=== PATIENT | female | born 1940 | race Two or more races ===

== ENCOUNTER 2020-12-13 08:00 | Emergency (ER) | payer OTHER ==
[~2020-12-13] VITALS: Ht 162.6 cm; Wt 83.9 kg
[2020-12-13 11:18] LABS: Basophils # (auto) 0 10 ^3/uL (0-0.2); Basophils % (auto) 0.3 % (0.0-2.0); Eosinophils # (auto) 0 10 ^3/uL (0-0.8); Hematocrit 39.7 % (36.0-46.0); Hemoglobin 13.2 g/dL (12.2-16.2); Lymphocytes # (auto) 0.5 10 ^3/uL (0.4-5.4); Lymphocytes % (auto) 5.7 % (10.0-50.0); Mean Corpuscular Hgb Conc. 33.3 g/dL (32.0-36.0); Mean Corpuscular Volume 87.2 fL (80.0-100.0); Monocytes # (auto) 0.3 10 ^3/uL (0-1.3); Monocytes % (auto) 4.2 % (0.0-12.0); Neutrophils # (auto) 7.3 10 ^3/uL (1.6-8.6); Neutrophils % (auto) 89.8 % (37.0-80.0); Red Blood Cells 4.55 10^6/uL (4.0-5.20); Red Cell Distribution Width 14.1 % (11.8-14.3); White Blood Cell 8.1 10^3/uL (4.4-10.8)
[2020-12-13 11:32] LABS: INR 1.03 (0.9-1.15); Partial Thromboplastin Time 25.1 sec (23.6-33.0)
[2020-12-13 11:34] LABS: Albumin 3.2 g/dL (3.4-5.0); BUN/Creatinine Ratio 20.9; Calcium 9.4 mg/dL (8.5-10.1); Potassium 3.6 mmol/L (3.5-5.1)
[2020-12-13 11:36] LABS: Bilirubin, Total 0.5 mg/dL (0.2-1.0); Total Protein 7.3 g/dL (6.4-8.2)
[2020-12-13 21:27] VITALS: BP 152/71
[2020-12-13] MEDS ORDERED: LISINOPRIL 10 MG TAB PO ONE (21:30)
[2020-12-13] MEDS ORDERED: HYDROcodone-ACET 5/325MG TAB PO ONE (21:30)
[2020-12-13] MEDS ORDERED: amLODIPine BESYLATE 5 MG TAB PO ONE (21:30)
== END 2020-12-14 00:55 | disposition short-term general hospital (02) ==
LOC: EDBD 08:00 → ER 08:00
DX: U07.1 COVID-19 (principal); S42.292A Other displaced fracture of upper end of left humerus, initial encounter for closed fracture; S42.252A Displaced fracture of greater tuberosity of left humerus, initial encounter for closed fracture; E11.65 Type 2 diabetes mellitus with hyperglycemia; E44.1 Mild protein-calorie malnutrition; R51.9 Headache, unspecified; I10 Essential (primary) hypertension; Z68.31 Body mass index [BMI] 31.0-31.9, adult; Z96.649 Presence of unspecified artificial hip joint; W18.09XA Striking against other object with subsequent fall, initial encounter; Y93.89 Activity, other specified; Y92.89 Other specified places as the place of occurrence of the external cause; Y99.8 Other external cause status
CPT/HCPCS: 36415; 70450; 71045; 72125; 73030; 73060; 80053; 84484; 85025; 85610; 85730; 87426

== ENCOUNTER 2020-12-26 03:02 | Inpatient (IN) | payer OTHER ==
[~2020-12-26] VITALS: Ht 167.6 cm; Wt 75.3 kg
[2020-12-26 03:47] LABS: Basophils # (auto) 0 10 ^3/uL (0-0.2); Basophils % (auto) 0.2 % (0.0-2.0); Eosinophils # (auto) 0 10 ^3/uL (0-0.8); Hematocrit 40.1 % (36.0-46.0); Hemoglobin 13.5 g/dL (12.2-16.2); Lymphocytes # (auto) 0.3 10 ^3/uL (0.4-5.4); Lymphocytes % (auto) 3.5 % (10.0-50.0); Mean Corpuscular Hgb Conc. 33.7 g/dL (32.0-36.0); Mean Corpuscular Volume 86.2 fL (80.0-100.0); Monocytes # (auto) 0.6 10 ^3/uL (0-1.3); Monocytes % (auto) 7.8 % (0.0-12.0); Neutrophils % (auto) 88.5 % (37.0-80.0); Nucleated Red Blood Cells % 0.2 %; Red Blood Cells 4.66 10^6/uL (4.0-5.20); Red Cell Distribution Width 13.8 % (11.8-14.3); White Blood Cell 7.9 10^3/uL (4.4-10.8)
[2020-12-26 04:06] LABS: Alanine Aminotransferase 24 U/L (13-56); Albumin 2.1 g/dL (3.4-5.0); Anion Gap 11 (5-15); Aspartate Aminotransferase 23 U/L (15-37); Blood Urea Nitrogen 26 mg/dL (7-18); Calcium 8.8 mg/dL (8.5-10.1); Carbon Dioxide 19 mmol/L (21-32); Chloride 102 mmol/L (98-107); Glucose 376 mg/dL (74-106); Magnesium 2.4 mg/dL (1.6-2.6); Potassium 4.5 mmol/L (3.5-5.1); Sodium 132 mmol/L (136-145)
[2020-12-26 04:14] LABS: Alkaline Phosphatase 100 U/L (45-117); BUN/Creatinine Ratio 31.7; Bilirubin, Total 0.6 mg/dL (0.2-1.0); CRP High Sensitivity 3.14 mg/dL (< 0.3); GFR African American 86 mL/min; GFR Non-African American 71 mL/min; Total Protein 6.6 g/dL (6.4-8.2)
[2020-12-26 04:50] LABS: Lactic Acid w/Reflex 2.1 mmol/L (0.4-2.0)
[2020-12-26] MEDS ORDERED: ENOXAPARIN SOD 80 MG/0.8ML SYRINGE SC ONE (05:00)
[2020-12-26] MEDS ORDERED: DexAMETHasone SOD PHOS 10MG/1ML VIAL INJ IV ONE (05:00)
[2020-12-26] MEDS ORDERED: DEXTROSE (50%) 50ML SYRG IV PRN (05:45)
[2020-12-26] MEDS ORDERED: IOHEXOL 350 MG/ML 100ML IJ ONE (05:45)
[2020-12-26] MEDS ORDERED: MORPHINE SULFATE INJECTION 2 MG/ML SYRG IV PRN (05:45)
[2020-12-26] MEDS ORDERED: NITROGLYCERIN 0.4 MG SL TAB SL PRN (05:45)
[2020-12-26] MEDS ORDERED: ACETAMINOPHEN 500 MG TAB PO PRN (05:45)
[2020-12-26] MEDS ORDERED: TEMAZEPAM 15 MG CAP PO PRN (05:45)
[2020-12-26] MEDS ORDERED: REMDESIVIR PER PHARMACY 0 ML IV SCH (05:45)
[2020-12-26] MEDS ORDERED: ONDANSETRON HCL 4 MG/2 ML VIAL IV PRN (05:45)
[2020-12-26 06:41] VITALS: BP 157/86
[2020-12-26] MEDS: ACCU-CHEK COMFORT CURVE STRIP VI SCH ×4 (07:36→21:34)
[2020-12-26] MEDS: InsuLIN REG 1unit/0.01ml Soln (100units/ml) SC SCH ×4 (07:37→21:39)
[2020-12-26 09:00] VITALS: BP 143/83
[2020-12-26] MEDS ORDERED: PANTOPRAZOLE 40 MG TAB PO SCH (10:00)
[2020-12-26] MEDS: cefTRIAXone 1GM/50ML D5W 50 ML IV SCH (10:25)
[2020-12-26] MEDS: ASCORBIC ACID 1,000 MG TAB PO SCH (10:25)
[2020-12-26] MEDS: AZITHROMYCIN 500MG/ 250ML 250 ML IV SCH (10:25)
[2020-12-26] MEDS: DexAMETHasone SOD PHOS 10MG/1ML VIAL INJ IV SCH (10:25)
[2020-12-26] MEDS: CHOLECALCIFEROL (VITD3) 2,000 UNIT CAP/TAB PO SCH (10:25)
[2020-12-26] MEDS: ATENOLOL 50 MG TAB PO SCH (10:26)
[2020-12-26] MEDS: amLODIPine BESYLATE 5 MG TAB PO SCH (10:26)
[2020-12-26] MEDS ORDERED: AMLO-489 PO (10:30)
[2020-12-26] MEDS ORDERED: EMPA1TAB3 PO (10:30)
[2020-12-26] MEDS ORDERED: ROSU1TAB14 PO (10:30)
[2020-12-26] MEDS ORDERED: CEFP200T15 PO (10:30)
[2020-12-26] MEDS ORDERED: ATEN25TA PO (10:30)
[2020-12-26] MEDS ORDERED: GLIP5TAB12 PO (10:30)
[2020-12-26 12:57] VITALS: BP 115/69
[2020-12-26 17:00] VITALS: BP 136/66
[2020-12-26] MEDS: ATORVASTATIN 20 MG TAB PO SCH (21:40)
[2020-12-26 22:00] VITALS: BP 145/82
[2020-12-27 04:30] VITALS: BP 130/73
[2020-12-27] MEDS: ACCU-CHEK COMFORT CURVE STRIP VI SCH ×4 (06:30→21:23)
[2020-12-27] MEDS: InsuLIN REG 1unit/0.01ml Soln (100units/ml) SC SCH ×4 (06:31→21:24)
[2020-12-27 07:04] LABS: Calcium 8.8 mg/dL (8.5-10.1)
[2020-12-27 07:05] LABS: Basophils # (auto) 0 10 ^3/uL (0-0.2); Basophils % (auto) 0.1 % (0.0-2.0); Eosinophils # (auto) 0 10 ^3/uL (0-0.8); Hematocrit 34.5 % (36.0-46.0); Hemoglobin 11.8 g/dL (12.2-16.2); Lymphocytes # (auto) 0.4 10 ^3/uL (0.4-5.4); Lymphocytes % (auto) 4.7 % (10.0-50.0); Mean Corpuscular Hemoglobin 28.7 pg (28.0-32.0); Mean Corpuscular Volume 84.2 fL (80.0-100.0); Monocytes # (auto) 0.7 10 ^3/uL (0-1.3); Monocytes % (auto) 8.3 % (0.0-12.0); Neutrophils # (auto) 6.9 10 ^3/uL (1.6-8.6); Neutrophils % (auto) 86.9 % (37.0-80.0); Nucleated Red Blood Cells % 0.1 %; Red Cell Distribution Width 13.7 % (11.8-14.3); White Blood Cell 7.9 10^3/uL (4.4-10.8)
[2020-12-27 07:08] LABS: BUN/Creatinine Ratio 53.4; Bilirubin, Total 0.5 mg/dL (0.2-1.0); Total Protein 5.8 g/dL (6.4-8.2)
[2020-12-27] MEDS: cefTRIAXone 1GM/50ML D5W 50 ML IV SCH (08:47)
[2020-12-27 09:00] VITALS: BP 123/70
[2020-12-27] MEDS ORDERED: REMDESIVIR 200 MG in NS 210ml LOADING DOSE ADULT IV ONE ×2 (09:00→15:00)
[2020-12-27] MEDS ORDERED: REMDESIVIR PER PHARMACY 0 ML IV SCH (09:00)
[2020-12-27] MEDS: DexAMETHasone SOD PHOS 10MG/1ML VIAL INJ IV SCH (09:50)
[2020-12-27] MEDS: AZITHROMYCIN 500MG/ 250ML 250 ML IV SCH (09:50)
[2020-12-27] MEDS: amLODIPine BESYLATE 5 MG TAB PO SCH (09:50)
[2020-12-27] MEDS: ASCORBIC ACID 1,000 MG TAB PO SCH (09:51)
[2020-12-27] MEDS: CHOLECALCIFEROL (VITD3) 2,000 UNIT CAP/TAB PO SCH (09:51)
[2020-12-27] MEDS: ENOXAPARIN SOD 40 MG/0.4 ML SYRINGE SC SCH ×2 (09:51→21:25)
[2020-12-27] MEDS: ATENOLOL 50 MG TAB PO SCH (09:51)
[2020-12-27 13:00] VITALS: BP 124/69
[2020-12-27 17:00] VITALS: BP 128/55
[2020-12-27] MEDS: glipiZIDE 5 MG TAB PO SCH (17:51)
[2020-12-27] MEDS: ALBUTEROL SULF HFA 90MCG INH 200DOSE IN PRN (20:27)
[2020-12-27] MEDS: ATORVASTATIN 20 MG TAB PO SCH (21:26)
[2020-12-27 22:00] VITALS: BP 107/54
[2020-12-28 05:00] VITALS: BP 136/77
[2020-12-28] MEDS: InsuLIN REG 1unit/0.01ml Soln (100units/ml) SC SCH ×4 (06:24→22:42)
[2020-12-28] MEDS: ACCU-CHEK COMFORT CURVE STRIP VI SCH ×4 (06:24→22:39)
[2020-12-28] MEDS: glipiZIDE 5 MG TAB PO SCH ×2 (06:40→18:12)
[2020-12-28 06:49] LABS: Potassium 3.3 mmol/L (3.5-5.1)
[2020-12-28 07:08] LABS: Albumin 2.1 g/dL (3.4-5.0); BUN/Creatinine Ratio 46.4; Bilirubin, Total 0.3 mg/dL (0.2-1.0); Calcium 8.9 mg/dL (8.5-10.1); Total Protein 5.7 g/dL (6.4-8.2)
[2020-12-28 09:00] VITALS: BP 125/65
[2020-12-28] MEDS: ALBUTEROL SULF HFA 90MCG INH 200DOSE IN PRN ×2 (09:08→22:03)
[2020-12-28] MEDS: cefTRIAXone 1GM/50ML D5W 50 ML IV SCH (09:27)
[2020-12-28] MEDS: DexAMETHasone SOD PHOS 10MG/1ML VIAL INJ IV SCH (09:41)
[2020-12-28] MEDS: JARDIANCE 25 MG PO SCH (09:42)
[2020-12-28] MEDS: AZITHROMYCIN 500MG/ 250ML 250 ML IV SCH (09:42)
[2020-12-28] MEDS: ASCORBIC ACID 1,000 MG TAB PO SCH (09:43)
[2020-12-28] MEDS: ATENOLOL 50 MG TAB PO SCH (09:43)
[2020-12-28] MEDS: CHOLECALCIFEROL (VITD3) 2,000 UNIT CAP/TAB PO SCH (09:43)
[2020-12-28] MEDS: ENOXAPARIN SOD 40 MG/0.4 ML SYRINGE SC SCH ×2 (09:43→22:39)
[2020-12-28] MEDS: amLODIPine BESYLATE 5 MG TAB PO SCH (09:44)
[2020-12-28 13:00] VITALS: BP 128/67
[2020-12-28] MEDS: REMDESIVIR 100mg 100 MG in SODIUM CHL 0.9% 230 ML IV SCH (15:30)
[2020-12-28 17:00] VITALS: BP 133/70
[2020-12-28 22:00] VITALS: BP 121/69
[2020-12-28] MEDS: ATORVASTATIN 20 MG TAB PO SCH (22:39)
[2020-12-29] MEDS: ALBUTEROL SULF HFA 90MCG INH 200DOSE IN PRN ×2 (06:01→21:52)
[2020-12-29 06:14] LABS: Albumin 1.7 g/dL (3.4-5.0); BUN/Creatinine Ratio 35.4; Calcium 8.1 mg/dL (8.5-10.1); Potassium 3.7 mmol/L (3.5-5.1)
[2020-12-29 06:17] LABS: Bilirubin, Total 0.4 mg/dL (0.2-1.0); Total Protein 5.2 g/dL (6.4-8.2)
[2020-12-29] MEDS: glipiZIDE 5 MG TAB PO SCH ×2 (06:32→17:34)
[2020-12-29] MEDS: ACCU-CHEK COMFORT CURVE STRIP VI SCH ×5 (06:32→23:58)
[2020-12-29] MEDS: InsuLIN REG 1unit/0.01ml Soln (100units/ml) SC SCH ×5 (07:04→23:57)
[2020-12-29] MEDS: JARDIANCE 25 MG PO SCH (08:20)
[2020-12-29] MEDS: DOXYCYCLINE 100MG/250ML 250 ML IV SCH ×2 (09:18→22:10)
[2020-12-29] MEDS: cefTRIAXone 1GM/50ML D5W 50 ML IV SCH (09:18)
[2020-12-29] MEDS: AZITHROMYCIN 500MG/ 250ML 250 ML IV SCH ×2 (09:34→12:59)
[2020-12-29] MEDS: DexAMETHasone SOD PHOS 10MG/1ML VIAL INJ IV SCH (09:34)
[2020-12-29] MEDS: ATENOLOL 50 MG TAB PO SCH (09:35)
[2020-12-29] MEDS: amLODIPine BESYLATE 5 MG TAB PO SCH (09:35)
[2020-12-29] MEDS: ASCORBIC ACID 1,000 MG TAB PO SCH (09:36)
[2020-12-29] MEDS: ENOXAPARIN SOD 40 MG/0.4 ML SYRINGE SC SCH ×2 (09:36→22:11)
[2020-12-29] MEDS: CHOLECALCIFEROL (VITD3) 2,000 UNIT CAP/TAB PO SCH (09:36)
[2020-12-29] MEDS: REMDESIVIR 100mg 100 MG in SODIUM CHL 0.9% 230 ML IV SCH (14:56)
[2020-12-29] MEDS ORDERED: FUROSEMIDE 20 MG/2 ML VIAL IV ONE (16:15)
[2020-12-29] MEDS ORDERED: POTASSIUM CHL 20 Meq TABLET PO ONE (16:15)
[2020-12-29 17:04] VITALS: BP 120/68
[2020-12-29 22:00] VITALS: BP 125/66
[2020-12-29] MEDS: ATORVASTATIN 20 MG TAB PO SCH (22:10)
[2020-12-29] MEDS ORDERED: DEXTROSE (50%) 50ML SYRG IV PRN (23:30)
[2020-12-30] VITALS (17 sets, daily range): BP systolic 88–168; BP diastolic 46–84
[2020-12-30] MEDS ORDERED: SODIUM CHLORIDE 0.9% 500 ML IV ONE (05:45)
[2020-12-30] MEDS: glipiZIDE 5 MG TAB PO SCH (06:38)
[2020-12-30] MEDS: InsuLIN REG 1unit/0.01ml Soln (100units/ml) SC SCH ×4 (06:38→23:49)
[2020-12-30] MEDS: ACCU-CHEK COMFORT CURVE STRIP VI SCH ×4 (06:38→23:35)
[2020-12-30] MEDS ORDERED: ALBUMIN 25% 100 ML IV ONE (08:24)
[2020-12-30] MEDS: ALBUMIN 25% 100 ML IV ONE ×2 (08:28→08:33)
[2020-12-30] MEDS: DOXYCYCLINE 100MG/250ML 250 ML IV SCH ×2 (09:00→21:00)
[2020-12-30] MEDS: JARDIANCE 25 MG PO SCH (10:00)
[2020-12-30] MEDS: ATENOLOL 50 MG TAB PO SCH (10:00)
[2020-12-30] MEDS ORDERED: FUROSEMIDE 20 MG/2 ML VIAL IV SCH (10:00)
[2020-12-30] MEDS: amLODIPine BESYLATE 5 MG TAB PO SCH (10:00)
[2020-12-30] MEDS: CHOLECALCIFEROL (VITD3) 2,000 UNIT CAP/TAB PO SCH (10:00)
[2020-12-30] MEDS: ENOXAPARIN SOD 40 MG/0.4 ML SYRINGE SC SCH (10:00)
[2020-12-30] MEDS ORDERED: PANTOPRAZOLE 40 MG/10 ML VIAL INJ IV ONE ×5 (10:45)
[2020-12-30] MEDS: NOREPINEPHRINE 8 MG/250ML KIT 250 ML IV SCH (10:45)
[2020-12-30] MEDS ORDERED: NOREPINEPHRINE 8 MG/250ML KIT 250 ML IV SCH ×3 (10:45)
[2020-12-30] MEDS: cefTRIAXone 1GM/50ML D5W 50 ML IV SCH (14:54)
[2020-12-30] MEDS: DexAMETHasone SOD PHOS 10MG/1ML VIAL INJ IV SCH (14:55)
[2020-12-30] MEDS ORDERED: AZITHROMYCIN 500MG/ 250ML 250 ML IV ONE (16:00)
[2020-12-30] MEDS: AZITHROMYCIN 500MG/ 250ML 250 ML IV SCH (16:01)
[2020-12-30] MEDS: REMDESIVIR 100mg 100 MG in SODIUM CHL 0.9% 230 ML IV SCH (16:13)
[2020-12-30 18:15] LABS: Basophils # (auto) 0 10 ^3/uL (0-0.2); Basophils % (auto) 0.3 % (0.0-2.0); Eosinophils # (auto) 0 10 ^3/uL (0-0.8); Eosinophils % (auto) 0.1 % (0.0-7.0); Hemoglobin 8.1 g/dL (12.2-16.2); Lymphocytes # (auto) 0.3 10 ^3/uL (0.4-5.4); Mean Corpuscular Hemoglobin 29.2 pg (28.0-32.0); Mean Corpuscular Hgb Conc. 31.3 g/dL (32.0-36.0); Mean Corpuscular Volume 93.3 fL (80.0-100.0); Monocytes # (auto) 0.3 10 ^3/uL (0-1.3); Neutrophils # (auto) 12.4 10 ^3/uL (1.6-8.6); Neutrophils % (auto) 95.6 % (37.0-80.0); Nucleated Red Blood Cells % 0.1 %; Red Blood Cells 2.79 10^6/uL (4.0-5.20); Red Cell Distribution Width 14.1 % (11.8-14.3); White Blood Cell 12.9 10^3/uL (4.4-10.8)
[2020-12-30 18:57] LABS: INR 1.32 (0.9-1.15); Partial Thromboplastin Time 29.1 sec (23.6-33.0)
[2020-12-30] MEDS: PANTOPRAZOLE 40 MG/10 ML VIAL INJ IV SCH (22:00)
[2020-12-30] MEDS ORDERED: PANTOPRAZOLE 40 MG/10 ML VIAL INJ IV SCH ×4 (22:00)
[2020-12-30] MEDS: ALBUTEROL SULF HFA 90MCG INH 200DOSE IN PRN (23:20)
[2020-12-31] VITALS (24 sets, daily range): BP systolic 123–168; BP diastolic 57–84
[2020-12-31 01:01] LABS: Hematocrit 23.5 % (36.0-46.0); Hemoglobin 8.2 g/dL (12.2-16.2)
[2020-12-31 05:50] LABS: Albumin 1.8 g/dL (3.4-5.0); Calcium 7.9 mg/dL (8.5-10.1); Potassium 4.5 mmol/L (3.5-5.1)
[2020-12-31 05:52] LABS: BUN/Creatinine Ratio 65.9
[2020-12-31 05:54] LABS: Bilirubin, Total 0.6 mg/dL (0.2-1.0); Total Protein 4.5 g/dL (6.4-8.2)
[2020-12-31] MEDS: InsuLIN REG 1unit/0.01ml Soln (100units/ml) SC SCH ×4 (06:00→23:43)
[2020-12-31] MEDS: ACCU-CHEK COMFORT CURVE STRIP VI SCH ×4 (06:10→23:32)
[2020-12-31 06:34] LABS: Hematocrit 25.3 % (36.0-46.0); Hemoglobin 8.4 g/dL (12.2-16.2); Mean Corpuscular Hemoglobin 29.5 pg (28.0-32.0); Mean Corpuscular Hgb Conc. 33.1 g/dL (32.0-36.0); Mean Corpuscular Volume 89.2 fL (80.0-100.0); Red Blood Cells 2.84 10^6/uL (4.0-5.20); Red Cell Distribution Width 14.3 % (11.8-14.3); White Blood Cell 14.4 10^3/uL (4.4-10.8)
[2020-12-31 06:40] LABS: Basophils % (manual) 0 (0.0-2.0); Blast Cells 0; Eosinophils % (manual) 0 (0-7); Metamyelocytes % 0; Myelocytes % 0; Promyelocytes % 0; Reactive Lymphocytes 0
[2020-12-31] MEDS: cefTRIAXone 1GM/50ML D5W 50 ML IV SCH (08:55)
[2020-12-31] MEDS: PANTOPRAZOLE 40 MG/10 ML VIAL INJ IV SCH ×2 (09:16→22:00)
[2020-12-31] MEDS: DexAMETHasone SOD PHOS 10MG/1ML VIAL INJ IV SCH (09:17)
[2020-12-31] MEDS: DOXYCYCLINE 100MG/250ML 250 ML IV SCH ×2 (09:17→21:00)
[2020-12-31 09:34] LABS: Band Neutrophils % (manual) 1; Lymphocytes % (manual) 8 (10.0-50.0); Monocytes % (manual) 3 (0-12)
[2020-12-31] MEDS: CHOLECALCIFEROL (VITD3) 2,000 UNIT CAP/TAB PO SCH (10:00)
[2020-12-31] MEDS: NOREPINEPHRINE 8 MG/250ML KIT 250 ML IV SCH (10:45)
[2020-12-31] MEDS: IVERMECTIN 3 MG TAB PO SCH (14:29)
[2020-12-31] MEDS: REMDESIVIR 100mg 100 MG in SODIUM CHL 0.9% 230 ML IV SCH (14:29)
[2020-12-31 18:21] LABS: Hematocrit 22.7 % (36.0-46.0); Hemoglobin 7.8 g/dL (12.2-16.2)
[2021-01-01] VITALS (27 sets, daily range): BP systolic 106–148; BP diastolic 45–95
[2021-01-01 01:16] LABS: Hemoglobin 7.8 g/dL (12.2-16.2)
[2021-01-01 01:18] LABS: Hematocrit 23.3 % (36.0-46.0)
[2021-01-01 05:52] LABS: Basophils # (auto) 0 10 ^3/uL (0-0.2); Basophils % (auto) 0.1 % (0.0-2.0); Eosinophils # (auto) 0 10 ^3/uL (0-0.8); Hematocrit 22.8 % (36.0-46.0); Hemoglobin 7.7 g/dL (12.2-16.2); Lymphocytes # (auto) 0.5 10 ^3/uL (0.4-5.4)
[2021-01-01 05:54] LABS: Eosinophils % (auto) 0.2 % (0.0-7.0); Lymphocytes % (auto) 3.3 % (10.0-50.0); Mean Corpuscular Hemoglobin 29.5 pg (28.0-32.0); Mean Corpuscular Hgb Conc. 33.7 g/dL (32.0-36.0); Mean Corpuscular Volume 87.4 fL (80.0-100.0); Monocytes # (auto) 0.6 10 ^3/uL (0-1.3); Monocytes % (auto) 4.5 % (0.0-12.0); Neutrophils % (auto) 91.9 % (37.0-80.0); Nucleated Red Blood Cells % 0.3 %; Red Blood Cells 2.61 10^6/uL (4.0-5.20); Red Cell Distribution Width 14.1 % (11.8-14.3); White Blood Cell 14.2 10^3/uL (4.4-10.8)
[2021-01-01] MEDS: InsuLIN REG 1unit/0.01ml Soln (100units/ml) SC SCH ×3 (06:00→18:00)
[2021-01-01 06:17] LABS: Potassium 4.3 mmol/L (3.5-5.1)
[2021-01-01] MEDS: ACCU-CHEK COMFORT CURVE STRIP VI SCH ×3 (06:21→18:09)
[2021-01-01 06:27] LABS: Calcium 8.6 mg/dL (8.5-10.1)
[2021-01-01] MEDS: cefTRIAXone 1GM/50ML D5W 50 ML IV SCH (08:09)
[2021-01-01] MEDS: DOXYCYCLINE 100MG/250ML 250 ML IV SCH ×2 (08:45→20:58)
[2021-01-01] MEDS: DexAMETHasone SOD PHOS 10MG/1ML VIAL INJ IV SCH (09:14)
[2021-01-01] MEDS: PANTOPRAZOLE 40 MG/10 ML VIAL INJ IV SCH ×2 (09:14→20:58)
[2021-01-01] MEDS: CHOLECALCIFEROL (VITD3) 2,000 UNIT CAP/TAB PO SCH (09:15)
[2021-01-01] MEDS: IVERMECTIN 3 MG TAB PO SCH (09:17)
[2021-01-01] MEDS: NOREPINEPHRINE 8 MG/250ML KIT 250 ML IV SCH (10:45)
[2021-01-01] MEDS ORDERED: FUROSEMIDE 40 MG/4 ML VIAL IV ONE (11:00)
[2021-01-02] VITALS (15 sets, daily range): BP systolic 99–127; BP diastolic 43–82
[2021-01-02] MEDS: ACCU-CHEK COMFORT CURVE STRIP VI SCH ×4 (00:13→17:04)
[2021-01-02] MEDS: InsuLIN REG 1unit/0.01ml Soln (100units/ml) SC SCH ×4 (00:32→17:46)
[2021-01-02 05:17] LABS: Basophils # (auto) 0 10 ^3/uL (0-0.2); Basophils % (auto) 0.2 % (0.0-2.0); Eosinophils # (auto) 0 10 ^3/uL (0-0.8); Eosinophils % (auto) 0.2 % (0.0-7.0); Hematocrit 25.8 % (36.0-46.0); Hemoglobin 8.9 g/dL (12.2-16.2); Lymphocytes # (auto) 0.4 10 ^3/uL (0.4-5.4); Lymphocytes % (auto) 3.8 % (10.0-50.0); Mean Corpuscular Hemoglobin 29.9 pg (28.0-32.0); Mean Corpuscular Hgb Conc. 34.6 g/dL (32.0-36.0); Mean Corpuscular Volume 86.6 fL (80.0-100.0); Monocytes # (auto) 0.6 10 ^3/uL (0-1.3); Neutrophils # (auto) 8.7 10 ^3/uL (1.6-8.6); Neutrophils % (auto) 89.8 % (37.0-80.0); Nucleated Red Blood Cells % 0.1 %; Red Blood Cells 2.98 10^6/uL (4.0-5.20); Red Cell Distribution Width 14.7 % (11.8-14.3); White Blood Cell 9.7 10^3/uL (4.4-10.8)
[2021-01-02 05:32] LABS: BUN/Creatinine Ratio 33.9; Calcium 8.6 mg/dL (8.5-10.1); Potassium 3.9 mmol/L (3.5-5.1)
[2021-01-02] MEDS: CHOLECALCIFEROL (VITD3) 2,000 UNIT CAP/TAB PO SCH (08:41)
[2021-01-02] MEDS: IVERMECTIN 3 MG TAB PO SCH (08:41)
[2021-01-02] MEDS: PANTOPRAZOLE 40 MG/10 ML VIAL INJ IV SCH ×2 (09:11→22:30)
[2021-01-02] MEDS: cefTRIAXone 1GM/50ML D5W 50 ML IV SCH (09:11)
[2021-01-02] MEDS: DexAMETHasone SOD PHOS 10MG/1ML VIAL INJ IV SCH (09:12)
[2021-01-02] MEDS: glipiZIDE 5 MG TAB PO SCH (17:03)
[2021-01-03] MEDS: InsuLIN REG 1unit/0.01ml Soln (100units/ml) SC SCH ×4 (00:12→18:00)
[2021-01-03 05:00] VITALS: BP 118/61
[2021-01-03] MEDS: ACCU-CHEK COMFORT CURVE STRIP VI SCH ×4 (05:45→18:14)
[2021-01-03 05:57] LABS: Hematocrit 25.3 % (36.0-46.0); Hemoglobin 8.6 g/dL (12.2-16.2)
[2021-01-03] MEDS: glipiZIDE 5 MG TAB PO SCH ×2 (06:35→18:14)
[2021-01-03 08:57] VITALS: BP 127/69
[2021-01-03] MEDS: DexAMETHasone SOD PHOS 10MG/1ML VIAL INJ IV SCH (09:23)
[2021-01-03] MEDS: CHOLECALCIFEROL (VITD3) 2,000 UNIT CAP/TAB PO SCH (09:23)
[2021-01-03] MEDS: PANTOPRAZOLE 40 MG/10 ML VIAL INJ IV SCH (09:24)
[2021-01-03] MEDS: IVERMECTIN 3 MG TAB PO SCH (09:24)
[2021-01-03] MEDS ORDERED: JARDIANCE 25 MG PO SCH (10:00)
[2021-01-03 12:39] VITALS: BP 106/54
[2021-01-03] MEDS ORDERED: CHOL1CAP47 PO (14:10)
[2021-01-03] MEDS ORDERED: PANT40TA2 PO (14:10)
[2021-01-03 16:12] VITALS: BP 120/65
[2021-01-03 16:49] VITALS: BP 114/59
== END 2021-01-03 20:25 | disposition home health service (06) | DRG 177 ==
LOC: ER 03:02 → EDBD 03:02 → TELE 05:36 → TELE-EAST 07:16 → DOU IN ICU 12-30 09:24 → TELE-EAST 01-02 13:52
PROVIDERS: ADMIT Nurse Practitioner; ATTEND Internal Medicine
PROC: XW033E5 Introduction of Remdesivir Anti-infective into Peripheral Vein, Percutaneous Approach, New Technology Group 5 (ICD-10-PCS; 2020-12-26)
PROC: 30233N1 Transfusion of Nonautologous Red Blood Cells into Peripheral Vein, Percutaneous Approach (ICD-10-PCS; principal; 2020-12-30)
PROC: 05HB33Z Insertion of Infusion Device into Right Basilic Vein, Percutaneous Approach (ICD-10-PCS; 2020-12-30)
PROC: B54MZZA Ultrasonography of Right Upper Extremity Veins, Guidance (ICD-10-PCS; 2020-12-30)
DX: U07.1 COVID-19 (principal); J96.01 Acute respiratory failure with hypoxia; J12.82 Pneumonia due to coronavirus disease 2019; E43 Unspecified severe protein-calorie malnutrition; S42.202A Unspecified fracture of upper end of left humerus, initial encounter for closed fracture; K92.2 Gastrointestinal hemorrhage, unspecified; I10 Essential (primary) hypertension; E11.9 Type 2 diabetes mellitus without complications; D64.9 Anemia, unspecified; I71.2 Thoracic aortic aneurysm, without rupture; Z83.3 Family history of diabetes mellitus; Z68.26 Body mass index [BMI] 26.0-26.9, adult; K22.9 Disease of esophagus, unspecified
CPT/HCPCS: 36415; 36600; 71045; 71275; 73060; 80048; 80053; 82270; 82306; 82728; 82805; 82962; 83036; 83605; 83615; 83735; 83880; 84484; 85007; 85014; 85018; 85025; 85027; 85379; 85610; 85730; 86141; 86850; 86900; 86901; 86920; 87040; 87077; 87081; 87426; 93005; 93970; 94640; 96372; 96374; 97110; 97530; C9113; G0378; J0696; J1100; J1815; J2405; J3490; P9047

== ENCOUNTER 2021-08-08 10:07 | Emergency (ER) | payer OTHER ==
[~2021-08-08] VITALS: Ht 175.3 cm; Wt 63.5 kg
[~2021-08-08 10:07] MED LIST: AMLO-489 PO; CHOL1CAP47 PO; EMPA1TAB3 PO; GLIP5TAB12 PO; PANT40TA2 PO; ROSU1TAB14 PO
[2021-08-08 14:37] LABS: Basophils # (auto) 0 10 ^3/uL (0-0.2); Basophils % (auto) 0.5 % (0.0-2.0); Eosinophils # (auto) 0 10 ^3/uL (0-0.8); Eosinophils % (auto) 0.3 % (0.0-7.0); Hematocrit 36.7 % (36.0-46.0); Hemoglobin 11.9 g/dL (12.2-16.2); Lymphocytes # (auto) 0.7 10 ^3/uL (0.4-5.4); Lymphocytes % (auto) 11.7 % (10.0-50.0); Mean Corpuscular Hemoglobin 27.6 pg (28.0-32.0); Mean Corpuscular Hgb Conc. 32.6 g/dL (32.0-36.0); Mean Corpuscular Volume 84.9 fL (80.0-100.0); Monocytes # (auto) 0.5 10 ^3/uL (0-1.3); Monocytes % (auto) 7.7 % (0.0-12.0); Neutrophils # (auto) 4.7 10 ^3/uL (1.6-8.6); Neutrophils % (auto) 79.8 % (37.0-80.0); Red Blood Cells 4.32 10^6/uL (4.0-5.20); White Blood Cell 5.9 10^3/uL (4.4-10.8)
[2021-08-08 15:18] LABS: Albumin 3.3 g/dL (3.4-5.0); Calcium 8.9 mg/dL (8.5-10.1); Magnesium 2.8 mg/dL (1.6-2.6); Potassium 3.8 mmol/L (3.5-5.1)
[2021-08-08 15:24] LABS: Bilirubin, Total 0.6 mg/dL (0.2-1.0); Total Protein 7.5 g/dL (6.4-8.2)
[2021-08-08 17:57] LABS: Urine Bacteria NONE SEEN /hpf (None Seen); Urine Blood 3+ /uL (Negative); Urine Budding Yeast MANY /hpf (None Seen); Urine WBC 3905 /hpf (0 - 5); Urine WBC Clumps PRESENT /hpf (None Seen)
[2021-08-08 18:23] LABS: Urine Specific Gravity 1.034 (1.001-1.035)
[2021-08-08] MEDS ORDERED: cefTRIAXone 1GM/50ML D5W 50 ML IV ONE (18:45)
[2021-08-08] MEDS ORDERED: CIPR-173 PO (21:00)
[2021-08-09] VITALS: BP 124/84
== END 2021-08-09 00:51 | disposition home or self-care (01) ==
LOC: EDBD 10:07 → ER 10:07
DX: N39.0 Urinary tract infection, site not specified (principal); E11.9 Type 2 diabetes mellitus without complications; E78.5 Hyperlipidemia, unspecified; I10 Essential (primary) hypertension; Z90.710 Acquired absence of both cervix and uterus; Z86.73 Personal history of transient ischemic attack (TIA), and cerebral infarction without residual deficits; Z88.0 Allergy status to penicillin
CPT/HCPCS: 36415; 74176; 80053; 81001; 83605; 83690; 83735; 84484; 85025; 87040; 93005; 96365; 99285; J0696